=== PATIENT | female | born 1930 | race Caucasian/White ===

== ENCOUNTER 2017-12-07 15:13 | Inpatient (IN) ==
[2017-12-07] MEDS: Heparin 25,000 UNIT/500 ML D5W 25,000 UNIT/500 ML BAG IVC SCH (14:29)
[2017-12-07] MEDS ORDERED: Ondansetron 4 MG/2 ML VIAL IVP PRN (20:07)
[2017-12-07] MEDS ORDERED: Naloxone 0.4 MG/ML INJ IVP PRN (20:07)
[2017-12-07] MEDS ORDERED: *HR* Heparin 5,000 UNIT/ML VIAL IVP PRN ×2 (20:07)
[2017-12-07] MEDS ORDERED: Acetaminophen 325 MG TABLET PO PRN (20:07)
--- NOTE | 2017-12-07 20:20 | Internal Med History&Physical ---
Date of Encounter: 12/07/17 Time of Encounter: 19:30 Assessment and Plan (1) Pulmonary embolism Current visit: No Status: Acute 1. Will continue on Heparin drip per protocol. 2. Convert to oral anti-coagulation when stable. 3. Will order ECHO to assess for RV function and/or strain. 4. Consult Oncology in the morning to assist with buttermaker continuous churn management and coordination of care given her lung cancer history. Qualifiers: Pulmonary embolism type: other Chronicity: acute Acute cor pulmonale presence: without acute cor pulmonale Qualified Code(s): I26.99 - Other pulmonary embolism without acute cor pulmonale (2) Pneumonia Current visit: No Status: Suspected 1. Will culture blood and start antibiotics for suspected pneumonia. 2. Oxygen and aerosols as needed for supportive measures. 3. Culture sputum if able to collect. Qualifiers: Pneumonia type: due to unspecified organism Laterality: right Lung location: lower lobe of lung Qualified Code(s): J18.1 - Lobar pneumonia, unspecified organism (3) CKD (chronic kidney disease) Current visit: Yes Status: Chronic 1. Monitor renal function and consult nephrology if necessary. 2. Patient has never seen a hardware assembler before but has been told she has CKD and is in need of establishment with nephrology. 3. Outpatient follow up otherwise. Qualifiers: Chronic kidney disease stage: stage 3 (moderate) Qualified Code(s): N18.3 - Chronic kidney disease, stage 3 (moderate) (4) Primary malignant neoplasm of right lower lobe of lung Current visit: No Status: Chronic 1. S/P radiation therapy to her right lung this past summer/fall. 2. Consult oncology in the morning to assist with management and follow up. (5) DVT prophylaxis Current visit: Yes Status: Acute 1. On Heparin drip for PE/DVT. Internal Medicine - H&P: HPI Chief complaint: SOB; transfer from [facility] Admitted From: Hospital to Hospital Transfer Plans for Post Hospital Care: Home History of present illness: Ms. Watkins is an 87 year old female who presents with a three-month history of progressive dyspnea. Her symptoms have been present for several month and attributed to her recent diagnosis of non-small cell lung cancer treated with radiation therapy. However, over the last 3 weeks, her dyspnea has progressively worsened to the point where she had dyspnea at rest and was unable to sleep due to her dyspnea. She therefore presented to the ER in [place] and had a workup performed including elevated d-dimer. This prompted them to do CT imaging of the chest, which revealed patient to have bilateral pulmonary emboli. She was started on heparin drip and transferred to [facility]. Upon my assessment of the patient, she feels much better since her heparin was started. She denies any chest pain prior to ER arrival and has no chest pain presently. She has had mild cough, which has been nonproductive. She denies any fevers, chills, or night sweats. She has been fatigued. Her biggest complaint has been shortness of breath. She denies any hemoptysis, significant wheezing, or pleurisy. She denies any ill contacts. I discussed CODE STATUS with patient and daughter -- she will remain full code for now. Past Med Surg Social Fam HX - Past Medical History Source: patient, old records reviewed, obtained from family Medical history: cancer, CVA, TIA Psychiatric history: depression - Past Surgical History Surgical History: angioplasty/stent, cholecystectomy, hysterectomy - Social History Smoking Status: Never smoker Smokeless Tobacco Status: No Alcohol use: occasionally Drug use: none Current living situation: Home, With Family Activity Level: Independent ambulation Recent Out of Country Travel Within the Last 8 Weeks: No - Family History Mother History Unknown: Yes Living Status: Father History Unknown: Yes Living Status: - Additional Family History Additional family history: NO FH PE/DVT Internal Medicine - H&P: Meds Aspirin 81 mg PO DAILY 10/14/15 [History] Levothyroxine [Synthroid] 100 mcg PO 0630 10/14/15 [History] Buspirone HCl [Buspar] 10 mg PO BID 05/04/17 [History] Metoprolol Succinate 25 mg PO DAILY 05/04/17 [History] Polyethylene Glycol 3350 [MiraLAX Powder Bulk 17.9 Oz] 1 scoop PO DAILY PRN [History] Vitamins A and D [Vitamin A and D] 1 cap PO DAILY 05/04/17 [History] Ondansetron ODT [Zofran ODT] 4 mg SL Q8HR PRN 06/11/17 [History] Ranolazine [Ranexa] 500 mg PO BID PRN 10/05/17 [History] Zonisamide [Zonegran] 100 mg PO HS 10/05/17 [History] Zonisamide [Zonegran] 200 mg PO QAM 10/05/17 [History] amLODIPine [Norvasc] 5 mg PO DAILY 10/05/17 [History] predniSONE [PredniSONE] 10 mg PO AD #75 tablet 10/05/17 [Rx] Albuterol Sulfate [Proair Hfa] 2 puff IH Q4HR PRN #1 inh 11/02/17 [Rx] predniSONE [PredniSONE] 10 mg PO DAILY #150 tablet 11/02/17 [Rx] Benzonatate [Tessalon] 100 mg PO TID PRN #60 capsule 11/23/17 [Rx] Doxycycline 100 mg PO BID #28 capsule 12/03/17 [Rx] 3 Allergy/AdvReac Type Severity Reaction Status Date / Time ciprofloxacin AdvReac See Verified 12/07/17 10:33 Comments codeine AdvReac See Verified 12/07/17 10:33 Comments - Constitutional Constitutional: weakness, no chills, no fever(s) - EENT Eyes: no blurry vision, no change in vision Ears: no ear pain, no tinnitus Nose, mouth and throat: no nasal congestion, no sinus pressure, no sore throat - Cardiovascular Cardiovascular ROS IM: dyspnea, dyspnea on exertion, paroxysmal nocturnal dyspnea, no chest pain, no palpitations - Respiratory Respiratory: cough, dyspnea, dyspnea on exertion, wheezing, no hemoptysis, no chest congestion, no excessive phlegm production, no change in phlegm color - Gastrointestinal Gastrointestinal: no abdominal pain, no diarrhea, no hematemesis, no hematochezia, no melena, no nausea, no vomiting - Genitourinary Genitourinary: no dysuria, no flank pain, no hematuria - Musculoskeletal Musculoskeletal ROS IM: back pain, no joint swelling - Integumentary Integumentary IM: no rash, no jaundice - Neurological Neurological ROS: frequent falls, weakness, no dizziness, no focal weakness, no paresthesias - Psychiatric Psychiatric: no anxiety, no depression - Endocrine Endocrine IM: no cold intolerance, no heat intolerance, no polydipsia, no polyuria - Hematologic/Lymphatic Hematologic/Lymphatic: no easy bruising, no lymphadenopathy - Allergic/Immunologic Allergic/Immunologic: wheezing, GI upset with certain foods - Constitutional Vitals: Temp Pulse Resp BP Pulse Ox 98 F 106 17 108/66 97 12/07/17 17:57 12/07/17 17:57 12/07/17 17:57 12/07/17 17:57 12/07/17 18:03 General appearance: Present: cooperative, A&O X 3, pleasant, no acute distress, answers questions appropriately - Head Head exam: Present: atraumatic, normal inspection - Expanded Head Exam Head exam expanded: Absent: general tenderness - Eye Eye exam: Present: EOMI, normal appearance, PERRL. Absent: scleral icterus Pupils: Present: normal accommodation - ENT ENT exam: Present: mucous membranes moist, normal exam - Neck Neck exam general surgery: Present: full ROM, supple. Absent: lymphadenopathy, tenderness, thyromegaly - Respiratory Respiratory exam: Present: rales (right base), rhonchi. Absent: chest wall tenderness, prolonged expiratory phase, respiratory distress, wheezes - Cardiovascular Cardiovascular exam: Present: RRR, +S1, +S2. Absent: diastolic murmur, JVD, systolic murmur - GI/Abdominal GI/Abdominal exam: Present: normal bowel sounds, soft. Absent: hepatomegaly, mass, splenomegaly - Extremities Exam Extremities exam: Present: calf tenderness, full ROM, normal capillary refill, pedal edema (2 + non-pitting edema), warm, radial pulses palpable and symmetrical. Absent: joint swelling - Back Exam Back exam: Present: normal inspection. Absent: CVA tenderness (L), CVA tenderness (R) - Neurological Exam Neurological exam: Present: alert, CN II-XII intact, oriented X3, no focal deficits - Psychiatric Psychiatric exam: Present: normal affect, normal mood - Skin Skin exam: Present: dry, warm. Absent: rash Internal Med - H&P Results - Labs Labs: I reviewed the labs from [facility] and they include the following: WBC 8.9 Hemoglobin 11.8 Hematocrit 34.7 Platelet 186 PT 11.6 INR 1.1 PT 29.8 D-dimer 25,219 Sodium 136 Potassium 3.7 Chloride 102 Carbon dioxide 24 BUN 24 Creatinine 1.32 CTA of the chest revealing bilateral pulmonary emboli and consolidative changes in right lung concerning for pulmnoary infarcts vs pneumonia
[2017-12-07 21:21] LABS: Hematocrit 33.8 % (35.3-44.9); Hemoglobin 11.2 g/dL (11.5-15.4); Mean Corpuscular HGB Conc 33.1 g/dL (31.6-35.5); Mean Corpuscular Hemoglobin 32.6 pg (28.0-33.3); Mean Corpuscular Volume 98.3 fL (83.0-100.0); Mean Platelet Volume 9.7 fL (9.4-12.4); Platelet Count 188 K/mcL (140-400); Red Blood Count 3.44 M/mcL (3.82-4.97); Red Cell Distribution Width 13.9 % (11.5-14.5)
[2017-12-07 21:26] LABS: INR 1.3; Prothrombin Time 14.5 Seconds (9.4-12.1)
[2017-12-07] MEDS: cefTRIAXone 1,000 MG in Water for inj. (sterile) 20 ML 10 ML IVP SCH (21:29)
[2017-12-07] MEDS: Azithromycin 500 MG in D5% in Water 250 ML IVPB SCH (21:30)
[2017-12-07] MEDS: 0.9 % Sodium Chloride 1,000 ML IVC SCH (21:32)
[2017-12-07 21:45] LABS: Activated Partial Thrombo Time 302.1 Seconds (26.0-36.0)
[2017-12-07 22:04] LABS: Heparin anti-factor XA UFH 1.31 IU/mL (0.30-0.70)
[2017-12-08] MEDS: methylPREDNISolone 125 MG/2 ML VIAL IVP SCH ×2 (00:14→07:50)
[2017-12-08 04:34] LABS: Basophils % 0.4 %; Eosinophils % 0.1 %; Hematocrit 35.3 % (35.3-44.9); Hemoglobin 11.7 g/dL (11.5-15.4); Immature Granulocytes % 1.7 % (0-4); Lymphocytes # 0.2 K/mcL (0.6-4.6); Lymphocytes % 2.7 %; Mean Corpuscular HGB Conc 33.1 g/dL (31.6-35.5); Mean Corpuscular Hemoglobin 32.6 pg (28.0-33.3); Mean Corpuscular Volume 98.3 fL (83.0-100.0); Mean Platelet Volume 9.4 fL (9.4-12.4); Monocytes # 0.2 K/mcL (0.0-1.3); Neutrophils # 7.6 K/mcL (1.6-8.9); Platelet Count 188 K/mcL (140-400); Red Blood Count 3.59 M/mcL (3.82-4.97); Red Cell Distribution Width 13.6 % (11.5-14.5); Segmented Neutrophils % 93.1 %
[2017-12-08 04:48] LABS: Alanine Aminotransferase 11 Units/L (7-52); Albumin 2.9 g/dL (3.5-5.7); Alkaline Phosphatase 59 Units/L (34-104); Aspartate Amino Transferase 12 Units/L (13-39); BUN/Creatinine Ratio 20 (6-26); Bilirubin,Total 0.6 mg/dL (0.3-1.0); Blood Urea Nitrogen 19 mg/dL (8-23); Calcium 8.5 mg/dL (8.6-10.3); Carbon Dioxide 21 mEq/L (23-29); Chloride 103 mEq/L (98-107); Glucose 143 mg/dL (70-105); Magnesium 1.6 mg/dL (1.6-2.6); Osmolality,Calculated 283 (280-300); Potassium 3.6 mEq/L (3.5-5.1); Sodium 134 mEq/L (136-145); Total Protein 5.9 g/dL (6.4-8.9); eGFR For African Americans > 60 (> 60); eGFR For Non-African Americans 54 (> 60)
[2017-12-08 05:07] LABS: Activated Partial Thrombo Time 134.4 Seconds (26.0-36.0)
[2017-12-08 05:12] LABS: Heparin anti-factor XA UFH 0.71 IU/mL (0.30-0.70)
[2017-12-08] MEDS: Albuterol 2.5 MG/3 ML NEBULIZER IH PRN ×2 (05:55→12:13)
[2017-12-08] MEDS: cefTRIAXone 1,000 MG in Water for inj. (sterile) 20 ML 10 ML IVP SCH (08:05)
--- NOTE | 2017-12-08 10:13 | Internal Med Progress Note ---
Date of Encounter: 12/08/17 Time of Encounter: 10:10 - Assessment and plan (1) Pulmonary embolism Current Visit: Yes Status: Acute Assessment and plan: Continue heparin drip. Consult oncology for proper anticoagulation in a cancer patient. Follow up on echocardiogram. Continue on telemetry. Qualifiers: Pulmonary embolism type: other Chronicity: unspecified Acute cor pulmonale presence: without acute cor pulmonale Qualified Code(s): I26.99 - Other pulmonary embolism without acute cor pulmonale (2) Pneumonia Current Visit: Yes Status: Acute Assessment and plan: Really no symptoms of pneumonia. Findings on imaging. He has been afebrile. No white count. We will check for legionella and strep pneumoniae and for the fluid. We will keep antibiotics going. If those are negative by tomorrow. Antibiotics. Qualifiers: Pneumonia type: due to unspecified organism Laterality: unspecified laterality Lung location: unspecified part of lung Qualified Code(s): J18.9 - Pneumonia, unspecified organism (3) CKD (chronic kidney disease) stage 3, GFR 30-59 ml/min Current Visit: Yes Status: Acute Assessment and plan: Stable and continue to monitor. (4) Primary malignant neoplasm of right lower lobe of lung Current Visit: No Status: Chronic Assessment and plan: Has received radiation and finished. Consult oncology. (5) DVT prophylaxis Current Visit: Yes Status: Acute Assessment and plan: On a heparin drip - Subjective Interval history: Patient was seen and examined. Admitted with bilateral PE. History of cancer. No reported history of hemoptysis but had a cough prior to admission. Has been afebrile. - Constitutional Vitals: Temp Pulse Resp BP Pulse Ox 98.0 F 92 22 137/87 94 12/08/17 08:02 12/08/17 08:02 12/08/17 08:02 12/08/17 08:02 12/08/17 08:02 General appearance: Present: cooperative, A&O X 3, pleasant, no acute distress, answers questions appropriately Exam: GEN: NAD CVS: RRR. S1, S2, No m/r/g RESP: Diminished ABD: Soft, NT, ND, +BS EXT: No edema. 2+ DP. No rashes NEURO: Nonfocal Internal Medicine: Result - Labs CBC & Chem 7: 12/08/17 04:24 12/08/17 04:05 Labs: Short CBC 12/07/17 12/08/17 Range/Units 21:13 04:24 WBC 7.6 8.2 (4.3-11.1) K/mcL Hgb 11.2 L 11.7 (11.5-15.4) g/dL Hct 33.8 L 35.3 (35.3-44.9) % Plt Count 188 188 (140-400) K/mcL Neutrophils # 7.6 (1.6-8.9) K/mcL BMP 12/08/17 04:05 Sodium 134 L Potassium 3.6 Chloride 103 Carbon Dioxide 21 L BUN 19 Creatinine 0.97 Glucose 143 H Calcium 8.5 L Cardiac Enzymes 12/07/17 12/08/17 Range/Units 21:13 01:49 Troponin I < 0.03 < 0.03 (< 0.04) ng/mL Liver Function 12/08/17 Range/Units 04:05 Total Bilirubin 0.6 (0.3-1.0) mg/dL AST 12 L (13-39) Units/L ALT 11 (7-52) Units/L Alkaline Phosphatase 59 (34-104) Units/L Albumin 2.9 L (3.5-5.7) g/dL - ABG Interpretation ABG results: PT/INR, D-dimer PT 14.5 Seconds (9.4-12.1) H 12/07/17 21:13 - VTE Reasons for not Prescribing Prophylaxis: Not indicated-Anticoagulated or INR therapeutic Consult Discharge Plan - Plan Referrals: Kevin Jacob, SOFTWARE CONFIGURATION MANAGER [Primary Care Provider] - (web request sent on 12/08/17)
[2017-12-08] MEDS ORDERED: NON-FORMULARY MEDICATION 1 EACH EACH (Omeprazole [Prilosec] 40 MG) PO SCH (10:30)
[2017-12-08] MEDS: Metoprolol XL (24 HR) Succ 25 MG TAB.ER.24H PO SCH (11:54)
[2017-12-08] MEDS: amLODIPine 5 MG TABLET PO SCH (11:54)
[2017-12-08] MEDS: 0.9 % Sodium Chloride 1,000 ML IVC SCH (11:57)
[2017-12-08] MEDS: Ranolazine 500 MG TAB.ER.12H PO PRN (14:51)
[2017-12-08 20:00] LABS: 2009 H1N1 PCR NOT DETECTED (Not Detect); Influenza A PCR Negative (Negative); Influenza B PCR Negative (Negative)
[2017-12-08] MEDS: Aspirin 81 MG TAB.CHEW PO SCH (20:59)
[2017-12-08] MEDS: Azithromycin 500 MG in D5% in Water 250 ML IVPB SCH (20:59)
[2017-12-08] MEDS ORDERED: Acetaminophen 325 MG TABLET PO PRN (21:56)
[2017-12-08 23:05] LABS: Activated Partial Thrombo Time 133.9 Seconds (26.0-36.0)
[2017-12-08 23:11] LABS: Heparin anti-factor XA UFH 0.83 IU/mL (0.30-0.70)
[2017-12-09] MEDS: Heparin 25,000 UNIT/500 ML D5W 25,000 UNIT/500 ML BAG IVC SCH (00:17)
--- NOTE | 2017-12-09 06:18 | Oncology Inp Consult Note ---
<Eveline Shields L - Last Filed: 12/09/17 07:47> Date of Encounter: 12/08/17 Time of Encounter: 17:00 Assessment and Plan (1) Pulmonary embolism Status: Acute Assessment and plan: 1. Acute bilateral pulmonary emboli. Symptomatic, reports pleuritic chest pain and SOB. Now requiring 3L O2 per nasal cannula, previously had no O2 requirement. Heparin gtt may be stopped and Eliquis started from hematology standpoint.Would recommend Eliquis 10 mg BID x7 days, followed with 5 mg BID ongoing for anticoagulation. Kidney function normal at this time, will continue to monitor. data services developer has been consulted to assess cost of Eliquis for patient. If eliquis is not afforadable for patient, she may start coumadin and be referred to the coumadin clinic. She wishes to go to the [facility] lab for lab draws in conjunction with the clinic if this is possible. Oncology would recommend against IVC filter. A BLE venous doppler has been ordered to establish a baseline LE exam with starting indefinite anticoagulation therapy. 2. Adenocarcinoma of the right lower lobe. She will have continued f/u arranged with Dr. Heredia/Dr. Vasquez along with further CT scanning to ensure resolution of lung opacities and continue to monitor 10 mm nonspecific low-density nodular lesion within the hepatic dome which is stable from 10/04/2017, though new, may consider further characterization with a follow-up multiphasic liver protocol CT study. Please refer to Dr. Herdeia's attestation below for further details. Qualifiers: Pulmonary embolism type: other Chronicity: unspecified Acute cor pulmonale presence: without acute cor pulmonale Qualified Code(s): I26.99 - Other pulmonary embolism without acute cor pulmonale - Data of Consult Patient: known to practice within the last 3 years Consult date: 12/08/17 Requesting Physician: Raad Norton Primary Care Provider: Kevin Jacob CNP - Consult Narrative Reason for consult: Adenocarcinoma of the right lower lobe, Bilat PE History of present illness: Ms. Watkins is a 87 year old female presented to the ER with c/o worsening SOB, pleutritic chest pain and cough that began about 3 weeks ago. She was recently diagnosed with radiation induced pneumonitis and started on steroids. She was also started on ATB treatment as an outpatient which did not help to decrease her symptoms. After her symptoms did not show improvement with steroid/ATB/ supportive treatment, she was sent for VQ scan which showed intermediate probability for pulmonary embolism. She was asked to present to ER for further PE workup. She presented to [facility] ER with SOB at rest and orthopnea. Further work up revealed elevated D Dimer and CT scan revealing acute bilateral pulmonary emboli. She was started on heparin and transferred to [facility] for further care. Ms. Watkins is a known patient of the [facility] and a patient of Dr. Heredia and Dr. Vasquez. 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 Most recently diagnosed with Adenocarcinoma of the right lower lobe, Stage I (cT2NX) following CT guided right lung mass biopsy 06/02/17, she received Stereotactic body radiotherapy to the right lower lobe 06/29/2017 - 07/09/2017. Past Med Surg Social Fam HX - Past Medical History Medical history: cancer, CVA, TIA Psychiatric history: depression - Past Surgical History Surgical History: angioplasty/stent, cholecystectomy, hysterectomy - Social History Smoking Status: Never smoker Smokeless Tobacco Status: No Alcohol use: occasionally Drug use: none - Family History Mother History Unknown: Yes Living Status: Father History Unknown: Yes Living Status: Medications and Allergies Aspirin 81 mg PO HS 10/14/15 [History] Levothyroxine [Synthroid] 100 mcg PO 0630 10/14/15 [History] Buspirone HCl [Buspar] 10 mg PO BID 05/04/17 [History] Metoprolol Succinate 25 mg PO DAILY 05/04/17 [History] Polyethylene Glycol 3350 [MiraLAX Powder Bulk 17.9 Oz] 1 scoop PO PRN PRN [History] Ondansetron ODT [Zofran ODT] 4 mg SL Q8HR PRN 06/11/17 [History] Ranolazine [Ranexa] 500 mg PO BID PRN 10/05/17 [History] Zonisamide [Zonegran] 100 mg PO HS 10/05/17 [History] Zonisamide [Zonegran] 200 mg PO QAM 10/05/17 [History] amLODIPine [Norvasc] 2.5 mg PO DAILY 10/05/17 [History] Albuterol Sulfate [Proair Hfa] 2 puff IH Q4HR PRN #1 inh 11/02/17 [Rx] predniSONE [PredniSONE] 10 mg PO DAILY #150 tablet 11/02/17 [Rx] Benzonatate [Tessalon] 100 mg PO TID PRN #60 capsule 11/23/17 [Rx] Doxycycline 100 mg PO BID #28 capsule 12/03/17 [Rx] Omeprazole [PriLOSEC] 40 mg PO DAILY 12/07/17 [History] Oxybutynin [Ditropan] 5 mg PO DAILY 12/08/17 [History] Enoxaparin [Lovenox *PHARMACY WT BASED*] 70 mg SQ Q12HR #7 mg 12/09/17 [Rx] Warfarin [Coumadin] 5 mg PO DAILY #50 tablet 12/09/17 [Rx] levoFLOXacin [Levaquin] 500 mg PO DAILY #3 tablet 12/09/17 [Rx] 3 Allergy/AdvReac Type Severity Reaction Status Date / Time ciprofloxacin AdvReac See Verified 12/08/17 09:31 Comments codeine AdvReac See Verified 12/08/17 09:31 Comments Constitutional: Present: fatigue, weakness. Absent: fever(s), headache(s), weight loss Eyes: Absent: change in vision Cardiovascular: Present: chest pain. Absent: irregular heart rhythm, palpitations Respiratory: Present: cough, dyspnea, pain on inspiration. Absent: hemoptysis Gastrointestinal: Absent: abdominal pain, nausea, vomiting Genitourinary: Absent: dysuria Musculoskeletal: Present: muscle weakness. Absent: numbness, tingling Integumentary: Absent: wounds Neurological: Present: dizziness, weakness Oncology - Exam - Constitutional Vitals: Temp Pulse Resp BP Pulse Ox 97.6 F 64 17 118/67 97 12/09/17 04:36 12/09/17 04:36 12/09/17 04:36 12/09/17 04:36 12/09/17 04:36 General appearance: cooperative, no acute distress - Head Head exam: Present: atraumatic - Respiratory Respiratory exam: Present: decreased breath sounds, CTAB. Absent: respiratory distress - Cardiovascular Cardiovascular exam: Present: RRR, +S1, +S2 - GI/Abdominal GI/Abdominal exam: Present: normal bowel sounds, soft. Absent: tenderness - Extremities Exam Extremities exam: Present: pedal edema. Absent: calf tenderness - Neurological Exam Neurological exam: Present: alert, oriented X3, strengths equal and symetr throughout. Absent: no focal deficits - Psychiatric Psychiatric exam: Present: normal affect, normal mood - Skin Skin exam: Present: normal color, warm Oncology - Results Labs: Cardiac Enzymes 12/08/17 Range/Units 11:25 Troponin I < 0.03 (< 0.04) ng/mL Consult Discharge Plan - Plan Referrals: Kevin Jacob CNP [Primary Care Provider] - (web request sent on 12/08/17) Prescriptions: Enoxaparin [Lovenox *PHARMACY WT BASED*] 70 mg SQ Q12HR #7 mg levoFLOXacin [Levaquin] 500 mg PO DAILY #3 tablet Warfarin [Coumadin] 5 mg PO DAILY #50 tablet <Red Heredia - Last Filed: 12/09/17 17:46> Date of Encounter: 12/09/17 - Data of Consult Requesting Physician: Raad Norton Primary Care Provider: Kevin Jacob CNP - Consult Narrative History of present illness: Ms. Watkins is a 87 year old female Oncology - Exam - Constitutional Vitals: Temp Pulse Resp BP Pulse Ox 97.5 F L 76 24 137/59 95 12/09/17 17:03 12/09/17 17:03 12/09/17 17:03 12/09/17 17:03 12/09/17 17:03 Oncology - Results Labs: Short CBC 12/09/17 Range/Units 06:33 WBC 9.8 (4.3-11.1) K/mcL Hgb 9.9 L D (11.5-15.4) g/dL Hct 29.7 L (35.3-44.9) % Plt Count 191 (140-400) K/mcL Neutrophils # 8.5 (1.6-8.9) K/mcL BMP 12/09/17 06:33 Sodium 135 L Potassium 4.4 Chloride 108 H Carbon Dioxide 23 BUN 21 Creatinine 1.06 Glucose 114 H Calcium 8.0 L - Attending Attestation I examined this patient and my medical decision-making was reviewed with the Advanced Practice Nurse. I agree with the documented findings, disposition and treatment plan as described except to the extent set forth below. BARILLAS persists , and she is worried it will not get better. Coarse BS on right and R>L LE swelling. She has subacute/acute PE and has been placed on heparin anticoagulation. Would consider eliquis 10 mg bid x 7 days. Would ask SW to investigate drug coverage. If not an option, pursue warfarin. We have ordered duplex dopplers for baseline. No need for IVC filter as she is tolerating anticoagulation well. Encouraged ambulation and oral intake.
[2017-12-09 06:52] LABS: Basophils % 0.1 %; Hematocrit 29.7 % (35.3-44.9); Immature Granulocytes % 1.4 % (0-4); Lymphocytes # 0.5 K/mcL (0.6-4.6); Lymphocytes % 5.5 %; Mean Corpuscular HGB Conc 33.3 g/dL (31.6-35.5); Mean Corpuscular Hemoglobin 32.8 pg (28.0-33.3); Mean Corpuscular Volume 98.3 fL (83.0-100.0); Mean Platelet Volume 9.6 fL (9.4-12.4); Monocytes # 0.6 K/mcL (0.0-1.3); Monocytes % 5.7 %; Neutrophils # 8.5 K/mcL (1.6-8.9); Platelet Count 191 K/mcL (140-400); Red Blood Count 3.02 M/mcL (3.82-4.97); Red Cell Distribution Width 13.7 % (11.5-14.5); Segmented Neutrophils % 87.3 %
[2017-12-09 06:54] LABS: Hemoglobin 9.9 g/dL (11.5-15.4)
[2017-12-09] MEDS: predniSONE 10 MG TABLET PO SCH (07:56)
[2017-12-09] MEDS: Metoprolol XL (24 HR) Succ 25 MG TAB.ER.24H PO SCH (07:56)
[2017-12-09] MEDS: amLODIPine 5 MG TABLET PO SCH (07:56)
[2017-12-09] MEDS: Ranolazine 500 MG TAB.ER.12H PO PRN (08:01)
[2017-12-09] MEDS: cefTRIAXone 1,000 MG in Water for inj. (sterile) 20 ML 10 ML IVP SCH (08:02)
[2017-12-09 08:08] LABS: Potassium 4.4 mEq/L (3.5-5.1)
[2017-12-09] MEDS: Albuterol 2.5 MG/3 ML NEBULIZER IH PRN (09:05)
--- NOTE | 2017-12-09 09:58 | Discharge Summary ---
Date of Encounter: 12/10/17 Time of Encounter: 09:56 - Discharge Diagnosis (1) Pulmonary embolism Priority: Primary Status: Acute Qualifiers: Pulmonary embolism type: other Chronicity: unspecified Acute cor pulmonale presence: without acute cor pulmonale Qualified Code(s): I26.99 - Other pulmonary embolism without acute cor pulmonale (2) Pneumonia Priority: Primary Status: Acute Qualifiers: Pneumonia type: due to unspecified organism Laterality: unspecified laterality Lung location: unspecified part of lung Qualified Code(s): J18.9 - Pneumonia, unspecified organism (3) CKD (chronic kidney disease) stage 3, GFR 30-59 ml/min Priority: Secondary Status: Acute (4) Primary malignant neoplasm of right lower lobe of lung Priority: Secondary Status: Chronic (5) DVT (deep venous thrombosis) Priority: Primary Status: Acute Qualifiers: DVT location: lower extremity Affected thrombotic vein of extremity: femoral Chronicity: acute Laterality: right Qualified Code(s): I82.411 - Acute embolism and thrombosis of right femoral vein (6) Hypoxemia Priority: Primary Status: Acute - Discharge Medications Prescriptions: Enoxaparin [Lovenox *PHARMACY WT BASED*] 70 mg SQ Q12HR #7 mg levoFLOXacin [Levaquin] 500 mg PO DAILY #3 tablet Warfarin [Coumadin] 5 mg PO DAILY #50 tablet Home Medications: Aspirin 81 mg PO HS 10/14/15 [History] Levothyroxine [Synthroid] 100 mcg PO 0630 10/14/15 [History] Buspirone HCl [Buspar] 10 mg PO BID 05/04/17 [History] Metoprolol Succinate 25 mg PO DAILY 05/04/17 [History] Polyethylene Glycol 3350 [MiraLAX Powder Bulk 17.9 Oz] 1 scoop PO PRN PRN [History] Ondansetron ODT [Zofran ODT] 4 mg SL Q8HR PRN 06/11/17 [History] Ranolazine [Ranexa] 500 mg PO BID PRN 10/05/17 [History] Zonisamide [Zonegran] 100 mg PO HS 10/05/17 [History] Zonisamide [Zonegran] 200 mg PO QAM 10/05/17 [History] amLODIPine [Norvasc] 2.5 mg PO DAILY 10/05/17 [History] Albuterol Sulfate [Proair Hfa] 2 puff IH Q4HR PRN #1 inh 11/02/17 [Rx] predniSONE [PredniSONE] 10 mg PO DAILY #150 tablet 11/02/17 [Rx] Benzonatate [Tessalon] 100 mg PO TID PRN #60 capsule 11/23/17 [Rx] Doxycycline 100 mg PO BID #28 capsule 12/03/17 [Rx] Omeprazole [PriLOSEC] 40 mg PO DAILY 12/07/17 [History] Oxybutynin [Ditropan] 5 mg PO DAILY 12/08/17 [History] Enoxaparin [Lovenox *PHARMACY WT BASED*] 70 mg SQ Q12HR #7 mg 12/09/17 [Rx] Warfarin [Coumadin] 5 mg PO DAILY #50 tablet 12/09/17 [Rx] levoFLOXacin [Levaquin] 500 mg PO DAILY #3 tablet 12/09/17 [Rx] Allergies/Adverse Reactions: 3 Allergy/AdvReac Type Severity Reaction Status Date / Time ciprofloxacin AdvReac See Verified 12/08/17 09:31 Comments codeine AdvReac See Verified 12/08/17 09:31 Comments Procedures/tests Complete & Pending: Procedures Performed prior 72 hours Category Date Time Status ECG 12 lead ECG [ECG] Routine Y 12/07/17 20:07 Ordered EKG [ECG 12 lead ECG] [ECG] Stat Y 12/08/17 05:05 Completed EV echocardiogram Routine Y 12/08/17 20:07 Completed Venous Doppler [EV venous imaging LE BI] Routine Y 12/09/17 08:00 Ordered Date of admission: 12/07/17 20:07 Primary care physician: Kevin Jacob CNP Consults: 12/08/17 10:07 Consult to Oncology [CONS] Routine Consulting Provider: [facility] Reason for Consult: PE in cancer patient. recommendation for ideal anticoagulation Call Completed: No 12/08/17 17:09 Consult to Electrical Accessories Assembler [CONS] Routine Reason for SW Consult: Physician would like pt to start on Eloquis, please check if it is financially affordable for the patient. Thanks 12/09/17 09:51 Consult to Occupational Therapy [CONS] Stat Comment: Evaluate, develop and implement POC Reason for Consult: therapy/placement needs Consult to Physical Therapy [CONS] Stat Comment: Evaluate, develop and implement POC Reason for Consult: PT eval - Patient Status Disposition: Home, Self-Care Condition: Fair Overall status at discharge: patient is progressing back to baseline - Discharge Instructions Follow Up With: Clinic, Anticoagulation [Other] - 12/15/17 8:00 am (Your first appointment will last about an hour. Please bring your medication bottles with you ) Kevin Jacob, BEAUTY SALES CONSULTANT [Primary Care Provider] - 12/15/17 11:10 am () - Diet and Activity Activity: increase activity as tolerated Diet: regular diet Hospital course: Ms. Watkins is a 87 year old female who presented with a three-month history of progressive dyspnea. Her symptoms have been present for several month and attributed to her recent diagnosis of non-small cell lung cancer treated with radiation therapy. In the ER in [place] and had a workup performed including elevated d-dimer. This prompted them to do CT imaging of the chest, which revealed patient to have bilateral pulmonary emboli. She was started on heparin drip and transferred to [facility]. She was admitted to the hospitalist service and continued on heparin drip. Echocardiogram did not show any right heart strain. She was also diagnosed with community-acquired pneumonia and was started on IV antibiotics and switched to liquid discharge. She had an acute left lower extremity deep venous thrombosis. We consult with oncology regarding best anticoagulation and her given her history of cancer. They recommended eliquis however her insurance would not cover and we up switching to Lovenox with Coumadin bridging and. She was hypoxemic continuously and required oxygen at discharge after 6 minute walk test. She was set up for that. She was told this was on 12/10/2007 - Time Spent with Patient Total time spent providing and/or coordinating discharge services: Greater than 30 minutes - Constitutional Vitals: Temp Pulse Resp BP Pulse Ox 99.0 F 72 16 139/82 98 12/09/17 08:02 12/09/17 08:02 12/09/17 08:02 12/09/17 08:02 12/09/17 08:02 General appearance: Present: cooperative, A&O X 3, pleasant, no acute distress, answers questions appropriately Exam: GEN: NAD CVS: RRR. S1, S2, No m/r/g RESP: CTAB ABD: Soft, NT, ND, +BS EXT: No edema. 2+ DP. No rashes NEURO: Nonfocal - VTE Reasons for not Prescribing Prophylaxis: Not indicated-Anticoagulated or INR therapeutic
[2017-12-09] MEDS ORDERED: Apixaban 5 MG TABLET PO SCH ×2 (10:00→21:00)
--- NOTE | 2017-12-09 12:45 | Oncology Inp Progress Note ---
<Eveline Shields - Last Filed: 12/09/17 17:19> Date of Encounter: 12/09/17 Time of Encounter: 09:30 (1) Pulmonary embolism Current Visit: Yes Status: Acute Assessment and plan: 1. Acute bilateral pulmonary emboli. Symptomatically improving. Now requiring 3L O2 per nasal cannula, previously had no O2 requirement, she has qualified for home O2. She has developed a slight drop in hgb to 9.9, plan to continue to monitor this , she denies any s/s related to bleeding such as epistaxis, hematura, melena, hematochezia. Eliquis is not well covered with patients insurance, she is planned to discharge with lovenox bridge to coumadin, managed with coumadin clinic. Oncology would recommend against IVC filter. Prelim venous doppler report to establish baseline shows bilateral lower extremity venous doppler - Right acute DVT distal fem v, pop v, PTV, and peroneal veins. chronic thrombus mid fem vein, no left DVT. She is planned for discharge home tomorrow. She has a follow up arranged with Dr. Vasquez next week and Dr. Heredia first part of December. 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 2. Adenocarcinoma of the right lower lobe. She will have continued f/u arranged with Dr. Heredia/Dr. Vasquez along with further CT scanning to ensure resolution of lung opacities and continue to monitor 10 mm nonspecific low-density nodular lesion within the hepatic dome which is stable from 10/04/2017, though new, may consider further characterization with a follow-up multiphasic liver protocol CT study. Please refer to Dr. Heredia's attestation below for further details. Qualifiers: Pulmonary embolism type: other Chronicity: unspecified Acute cor pulmonale presence: without acute cor pulmonale Qualified Code(s): I26.99 - Other pulmonary embolism without acute cor pulmonale Oncology: Subj Interval history: Ms. Watkins appears to be clinically approving. She denies recent chest pain and feels as though SOB continues to improve. Still experiences SOB with exertion. Reports back pain from laying in bed. Denies any s/s of bleeding. - Constitutional Vitals: Vital Signs Temp Pulse Resp BP Pulse Ox 12/09/17 11:59 97.9 F 74 22 108/65 100 12/09/17 11:22 98 12/09/17 08:02 99.0 F 72 16 139/82 98 12/09/17 04:36 97.6 F 64 17 118/67 97 12/08/17 23:52 97.7 F 80 14 106/63 98 12/08/17 20:35 98.3 F 89 16 130/63 97 12/08/17 16:38 97.4 F L 67 19 117/64 96 Intake and Output 12/08/17 12/09/17 12/09/17 23:59 07:59 15:59 Intake Total 120 / 120 205 / 205 360 / 360 Balance 120 / 120 205 / 205 360 / 360 Intake: IV Fluids 0 / 0 205 / 205 Heparin 25,000 UNIT/500 ML D5W 0 / 0 205 205 25,000 unit In 500 ml @ 14 UNIT /KG/HR 20.048 mls/hr IVC .Q24H [facility] Rx#:[id number] Oral 120 / 120 360 / 360 Other: Meal Dinner Breakfast Percent of Meal Consumed 100% 75% # Voids 1 1 # Urine Diapers 1 Weight 72.1 kg Patient Weight 12/09/17 23:59 Weight 72.1 kg General appearance: cooperative, no acute distress, no febrile - Respiratory Respiratory exam: Present: decreased breath sounds, CTAB - Cardiovascular Cardiovascular exam: Present: RRR, +S1, +S2 - GI/Abdominal GI/Abdominal exam: Present: normal bowel sounds, soft. Absent: tenderness - Extremities Exam Extremities exam: Present: pedal edema. Absent: calf tenderness - Neurological Exam Neurological exam: Present: alert, oriented X3, strengths equal and symetr throughout. Absent: no focal deficits - Psychiatric Psychiatric exam: Present: normal affect, normal mood - Skin Skin exam: Present: normal color, warm Oncology: Obj Data - Labs CBC & Chem 7: 12/09/17 06:33 12/09/17 06:33 - Impressions Impressions Echocardiogram 12/08/17 20:07 Impressions: LVEF 60%. Mild left ventricular diastolic dysfunction. Normal right ventricular structure and function. Mild mitral regurgitation. Moderate-severe tricuspid regurgitation. Moderate pulmonary hypertension. Left Ventricular Wall Motion: Rest Echo Findings All wall segments showed normal motion. Findings: Study Quality * Technically adequate exam. ECG Findings * Normal sinus rhythm. Left Ventricle * LVEF 60%. * Normal LV chamber size, wall thickness and function. * Mild left ventricular diastolic dysfunction. Right Ventricle * Normal right ventricular structure and function. Left Atrium * Normal left atrial size. Right Atrium * Normal right atrial size. Aortic Valve * No aortic regurgitation. * Aortic valve not well visualized. * No aortic stenosis. Mitral Valve * Mild mitral regurgitation. * Mildly calcified mitral valve leaflets. * No mitral stenosis. Tricuspid Valve * Normal tricuspid valve structure. * Estimated RA pressure is 3 mmHg. * Estimated RVSP is 56 mmHg. * Moderate pulmonary hypertension. * Moderate-severe tricuspid regurgitation. Pulmonic Valve * Pulmonic valve is not well visualized. * No pulmonic stenosis. * Trace pulmonic regurgitation. Pulmonary Artery * Pulmonary artery not well visualized. Aorta * Normally sized aortic root. Pericardium * There is no pericardial effusion present. Interatrial Septum * No evidence of PFO by color Doppler. IVC * Normal IVC dimensions and inspiratory collapse. - ABG Interpretation ABG results: PT/INR, D-dimer PT 14.5 Seconds (9.4-12.1) H 12/07/17 21:13 Consult Discharge Plan - Plan Referrals: Kevin Jacob, CREDIT AND LOAN COLLECTIONS SUPERVISOR [Primary Care Provider] - (web request sent on 12/08/17) Prescriptions: Enoxaparin [Lovenox *PHARMACY WT BASED*] 70 mg SQ Q12HR #7 mg levoFLOXacin [Levaquin] 500 mg PO DAILY #3 tablet Warfarin [Coumadin] 5 mg PO DAILY #50 tablet <Red Heredia S - Last Filed: 12/09/17 17:47> Date of Encounter: 12/09/17 - Constitutional Vitals: Vital Signs Temp Pulse Resp BP Pulse Ox 12/09/17 17:03 97.5 F L 76 24 137/59 95 12/09/17 11:59 97.9 F 74 22 108/65 100 12/09/17 11:22 98 12/09/17 08:02 99.0 F 72 16 139/82 98 12/09/17 04:36 97.6 F 64 17 118/67 97 12/08/17 23:52 97.7 F 80 14 106/63 98 12/08/17 20:35 98.3 F 89 16 130/63 97 Intake and Output 12/09/17 12/09/17 12/10/17 08:59 16:59 00:59 Intake Total 720 / 720 Balance 720 / 720 Intake: IV Fluids Heparin 25,000 UNIT/500 ML D5W 25,000 unit In 500 ml @ 14 UNIT /KG/HR 20.048 mls/hr IVC .Q24H [facility] Rx#:[id number] Oral 720 / 720 Other: Meal Lunch Percent of Meal Consumed 100% # Voids 1 # Urine Diapers 1 Weight 72.1 kg Patient Weight 12/10/17 00:59 Weight 72.1 kg Oncology: Obj Data - Labs CBC & Chem 7: 12/09/17 06:33 12/09/17 06:33 Labs: Laboratory Results - last 24 hr 12/08/17 12/08/17 12/08/17 17:14 21:54 22:07 WBC RBC Hgb Hct MCV MCH MCHC RDW Plt Count MPV Immature Gran % Seg Neutrophils % Lymphocytes % Monocytes % Eosinophils % Basophils % Neutrophils # Lymphocytes # Monocytes # Eosinophils # Basophils # APTT 133.9 H* D Heparin Anti-Xa, Unfract 0.83 H Sodium Potassium Chloride Carbon Dioxide BUN Creatinine Est GFR ( Amer) Est GFR (Non-Af Amer) BUN/Creatinine Ratio Glucose Calculated Osmolality Calcium Influ A (H1N1) PCR NOT DETECTED Influenza Type A (PCR) Negative Influenza Type B (PCR) Negative Specimen Rejected Contaminated 12/09/17 12/09/17 12/09/17 06:33 06:33 06:33 WBC 9.8 RBC 3.02 L Hgb 9.9 L D Hct 29.7 L MCV 98.3 MCH 32.8 MCHC 33.3 RDW 13.7 Plt Count 191 MPV 9.6 Immature Gran % 1.4 Seg Neutrophils % 87.3 Lymphocytes % 5.5 Monocytes % 5.7 Eosinophils % 0.0 Basophils % 0.1 Neutrophils # 8.5 Lymphocytes # 0.5 L Monocytes # 0.6 Eosinophils # 0.0 Basophils # 0.0 APTT 73.1 H Heparin Anti-Xa, Unfract Sodium 135 L Potassium 4.4 Chloride 108 H Carbon Dioxide 23 BUN 21 Creatinine 1.06 Est GFR ( Amer) 59 L Est GFR (Non-Af Amer) 49 L BUN/Creatinine Ratio 20 Glucose 114 H Calculated Osmolality 284 Calcium 8.0 L Influ A (H1N1/09) PCR Influenza Type A (PCR) Influenza Type B (PCR) Specimen Rejected - ABG Interpretation ABG results: PT/INR, D-dimer PT 14.5 Seconds (9.4-12.1) H 12/07/17 21:13 - Attending Attestation I examined this patient and my medical decision-making was reviewed with the Advanced Practice Nurse. I agree with the documented findings, disposition and treatment plan as described except to the extent set forth below. She is doing well. Breathing more comfortably and ambulating well. Still concerned that she feels BARILLAS. Tolerating blood thinner, although H/H did drop. Eliquis not covered by insurance and coumadin started. Agree with d/c to home tomorrow on lovenoz bridge. Goal INR 2-3. Offered encouragement that BARILLAS will improve with time. Continue steroids for pneumonitis. Schedule f/u with coumadin clinic. Will schedule f/u with Dr. Vasquez and myself after d/c. Would repeat CBC in AM-ordered.
--- NOTE | 2017-12-09 15:21 | Internal Med Progress Note ---
Date of Encounter: 12/10/17 Time of Encounter: 11:00 - Assessment and plan (1) Hypoxemia Current Visit: Yes Status: Acute Assessment and plan: Likely secondary to PE. She also has lung cancer however which contributes to. On top of that she also has pneumonia. patient qualified for O2 2L continuos (2) Pulmonary embolism Current Visit: Yes Status: Acute Assessment and plan: will d/c today on lovenox/coumadin. Qualifiers: Pulmonary embolism type: other Chronicity: unspecified Acute cor pulmonale presence: without acute cor pulmonale Qualified Code(s): I26.99 - Other pulmonary embolism without acute cor pulmonale (3) Pneumonia Current Visit: Yes Status: Acute Assessment and plan: Really no symptoms of pneumonia. Findings on imaging. He has been afebrile. No white count. will d/c on levaquin Qualifiers: Pneumonia type: due to unspecified organism Laterality: unspecified laterality Lung location: unspecified part of lung Qualified Code(s): J18.9 - Pneumonia, unspecified organism (4) CKD (chronic kidney disease) stage 3, GFR 30-59 ml/min Current Visit: Yes Status: Acute Assessment and plan: Stable and continue to monitor. (5) Primary malignant neoplasm of right lower lobe of lung Current Visit: No Status: Chronic Assessment and plan: Has received radiation and finished. Consult oncology. - Subjective Interval history: Patient was seen and examined. No acute events. She feels well this morning. She still requiring oxygen. Admitted with bilateral PE. History of cancer. No reported history of hemoptysis but had a cough prior to admission. Has been afebrile. - Constitutional Vitals: Temp Pulse Resp BP Pulse Ox 97.9 F 74 22 108/65 100 12/09/17 11:59 12/09/17 11:59 12/09/17 11:59 12/09/17 11:59 12/09/17 11:59 General appearance: Present: cooperative, A&O X 3, pleasant, no acute distress, answers questions appropriately Exam: GEN: NAD CVS: RRR. S1, S2, No m/r/g RESP: CTAB ABD: Soft, NT, ND, +BS EXT: No edema. 2+ DP, No rashes NEURO: Nonfocal Internal Medicine: Result - Labs CBC & Chem 7: 12/10/17 06:01 12/09/17 06:33 Labs: Short CBC 12/09/17 Range/Units 06:33 WBC 9.8 (4.3-11.1) K/mcL Hgb 9.9 L D (11.5-15.4) g/dL Hct 29.7 L (35.3-44.9) % Plt Count 191 (140-400) K/mcL Neutrophils # 8.5 (1.6-8.9) K/mcL BMP 12/09/17 06:33 Sodium 135 L Potassium 4.4 Chloride 108 H Carbon Dioxide 23 BUN 21 Creatinine 1.06 Glucose 114 H Calcium 8.0 L - ABG Interpretation ABG results: PT/INR, D-dimer PT 14.5 Seconds (9.4-12.1) H 12/07/17 21:13 - Impressions Impressions Echocardiogram 12/08/17 20:07 Impressions: LVEF 60%. Mild left ventricular diastolic dysfunction. Normal right ventricular structure and function. Mild mitral regurgitation. Moderate-severe tricuspid regurgitation. Moderate pulmonary hypertension. Left Ventricular Wall Motion: Rest Echo Findings All wall segments showed normal motion. Findings: Study Quality * Technically adequate exam. ECG Findings * Normal sinus rhythm. Left Ventricle * LVEF 60%. * Normal LV chamber size, wall thickness and function. * Mild left ventricular diastolic dysfunction. Right Ventricle * Normal right ventricular structure and function. Left Atrium * Normal left atrial size. Right Atrium * Normal right atrial size. Aortic Valve * No aortic regurgitation. * Aortic valve not well visualized. * No aortic stenosis. Mitral Valve * Mild mitral regurgitation. * Mildly calcified mitral valve leaflets. * No mitral stenosis. Tricuspid Valve * Normal tricuspid valve structure. * Estimated RA pressure is 3 mmHg. * Estimated RVSP is 56 mmHg. * Moderate pulmonary hypertension. * Moderate-severe tricuspid regurgitation. Pulmonic Valve * Pulmonic valve is not well visualized. * No pulmonic stenosis. * Trace pulmonic regurgitation. Pulmonary Artery * Pulmonary artery not well visualized. Aorta * Normally sized aortic root. Pericardium * There is no pericardial effusion present. Interatrial Septum * No evidence of PFO by color Doppler. IVC * Normal IVC dimensions and inspiratory collapse. - VTE Reasons for not Prescribing Prophylaxis: Not indicated-Anticoagulated or INR therapeutic Consult Discharge Plan - Plan Referrals: Kevin Jacob CNP [Primary Care Provider] - 12/15/17 11:10 am () Prescriptions: Enoxaparin [Lovenox *PHARMACY WT BASED*] 70 mg SQ Q12HR #7 mg levoFLOXacin [Levaquin] 500 mg PO DAILY #3 tablet Warfarin [Coumadin] 5 mg PO DAILY #50 tablet
[2017-12-09] MEDS ORDERED: Warfarin perPT PO PRN (18:00)
[2017-12-09] MEDS ORDERED: *HR* Warfarin 2.5 MG TABLET PO ONE (18:00)
[2017-12-09] MEDS ORDERED: *HR* Enoxaparin 80 MG/0.8 ML SYRINGE SQ SCH (18:00)
[2017-12-09] MEDS: Azithromycin 500 MG in D5% in Water 250 ML IVPB SCH (20:12)
[2017-12-09] MEDS: Aspirin 81 MG TAB.CHEW PO SCH (20:13)
[2017-12-09] MEDS: *HR* Enoxaparin 80 MG/0.8 ML SYRINGE SQ SCH (20:13)
[2017-12-10 06:11] LABS: Hematocrit 31.6 % (35.3-44.9); Hemoglobin 10.3 g/dL (11.5-15.4); Mean Corpuscular HGB Conc 32.6 g/dL (31.6-35.5); Mean Corpuscular Hemoglobin 32.7 pg (28.0-33.3); Mean Corpuscular Volume 100.3 fL (83.0-100.0); Mean Platelet Volume 9.8 fL (9.4-12.4); Platelet Count 210 K/mcL (140-400); Red Blood Count 3.15 M/mcL (3.82-4.97)
[2017-12-10 07:29] VITALS: BP 129/77
[2017-12-10 07:46] LABS: INR 1.2; Prothrombin Time 12.5 Seconds (9.4-12.1)
[2017-12-10] MEDS: cefTRIAXone 1,000 MG in Water for inj. (sterile) 20 ML 10 ML IVP SCH (08:16)
[2017-12-10] MEDS: predniSONE 10 MG TABLET PO SCH (08:18)
[2017-12-10] MEDS: Metoprolol XL (24 HR) Succ 25 MG TAB.ER.24H PO SCH (08:18)
[2017-12-10] MEDS: amLODIPine 5 MG TABLET PO SCH (08:18)
--- NOTE | 2017-12-10 10:23 | Physician Discharge Referral ---
Home Health/Hosp Referral Info Transfer to: Home Health - Diagnosis (1) Pulmonary embolism Priority: Primary Status: Acute (2) Pneumonia Priority: Primary Status: Acute (3) CKD (chronic kidney disease) stage 3, GFR 30-59 ml/min Priority: Secondary Status: Acute (4) Primary malignant neoplasm of right lower lobe of lung Priority: Secondary Status: Chronic (5) DVT (deep venous thrombosis) Priority: Primary Status: Acute - Respiratory Orders Smoking Cessation: Smoking cessation has been advised. For more information, call the [place] Tobacco Quit Line at 2-291-OQEH-NOW. - Services Needed Following services are medically necessary services: Nursing, Home Health Aide - Transfer Medications Prescriptions: Enoxaparin [Lovenox *PHARMACY WT BASED*] 70 mg SQ Q12HR #7 mg levoFLOXacin [Levaquin] 500 mg PO DAILY #3 tablet Warfarin [Coumadin] 5 mg PO DAILY #50 tablet Home Medications: Aspirin 81 mg PO HS 10/14/15 [History] Levothyroxine [Synthroid] 100 mcg PO 0630 10/14/15 [History] Buspirone HCl [Buspar] 10 mg PO BID 05/04/17 [History] Metoprolol Succinate 25 mg PO DAILY 05/04/17 [History] Polyethylene Glycol 3350 [MiraLAX Powder Bulk 17.9 Oz] 1 scoop PO PRN PRN [History] Ondansetron ODT [Zofran ODT] 4 mg SL Q8HR PRN 06/11/17 [History] Ranolazine [Ranexa] 500 mg PO BID PRN 10/05/17 [History] Zonisamide [Zonegran] 100 mg PO HS 10/05/17 [History] Zonisamide [Zonegran] 200 mg PO QAM 10/05/17 [History] amLODIPine [Norvasc] 2.5 mg PO DAILY 10/05/17 [History] Albuterol Sulfate [Proair Hfa] 2 puff IH Q4HR PRN #1 inh 11/02/17 [Rx] predniSONE [PredniSONE] 10 mg PO DAILY #150 tablet 11/02/17 [Rx] Benzonatate [Tessalon] 100 mg PO TID PRN #60 capsule 11/23/17 [Rx] Doxycycline 100 mg PO BID #28 capsule 12/03/17 [Rx] Omeprazole [PriLOSEC] 40 mg PO DAILY 12/07/17 [History] Oxybutynin [Ditropan] 5 mg PO DAILY 12/08/17 [History] Enoxaparin [Lovenox *PHARMACY WT BASED*] 70 mg SQ Q12HR #7 mg 12/09/17 [Rx] Warfarin [Coumadin] 5 mg PO DAILY #50 tablet 12/09/17 [Rx] levoFLOXacin [Levaquin] 500 mg PO DAILY #3 tablet 12/09/17 [Rx] Allergies/Adverse Reactions: 3 Allergy/AdvReac Type Severity Reaction Status Date / Time ciprofloxacin AdvReac See Verified 12/08/17 09:31 Comments codeine AdvReac See Verified 12/08/17 09:31 Comments Certification: Further, I certify that my clinical findings support that this patient is homebound (i.e. absences from home require considerable and taxing effort and are for medical reasons or caodaism services or infrequently or short duration when for other reasons) because: Homebound Reason: Patient requires assistance of a person or device to safely leave home Attestation: My signature below is to certify that this patient is under my care and that I, or nurse practitioner, or a physician's technical services assistant working with me, has a face-to -face encounter with this patient.
[2017-12-10] MEDS: *HR* Enoxaparin 80 MG/0.8 ML SYRINGE SQ SCH (12:03)
[2017-12-10] MEDS ORDERED: *HR* Warfarin 2.5 MG TABLET PO ONE (18:00)
[2017-12-10] MEDS ORDERED: Azithromycin 250 MG TABLET PO SCH (21:00)
--- NOTE | 2017-12-11 06:36 | Electrocardiograph Report ---
[address] [address] Test Date: 2017-12-08 Pat Name: Josefina Watkins Department: 112 Room: 2A26 Gender: F Office Assistance: : [id number] Requested By: Miguel Iyer Order Number: [id number] Reading MD: Froylan Pierce MD Measurements Intervals [place] Rate: 129 P: MS: 0 QRS: -12 QRSD: 84 T: 32 QT: 314 QTc: 390 Interpretive Statements ATRIAL FIBRILLATION WITH RAPID VENTRICULAR RESPONSE Electronically Signed On 12-11-2017 6:35:06 EST by Froylan Pierce MD
== END 2017-12-10 13:57 | disposition home or self-care (01) | DRG 175 ==
LOC: 2ANU
PROVIDERS: ADMIT Hospitalist; ATTEND Internal Medicine